=== PATIENT | male | born 1975 | race African-American/Black ===

== ENCOUNTER 2020-08-10 10:32 | Inpatient (IN) | payer SELFPAY ==
[2020-08-10 11:52] LABS: Absolute Lymphocytes (CBC) 1.3 K/uL (0.7-4.9); Basophils % 0.6 % (0-1.3); Hematocrit 51.2 % (39.6-49.0); Lymphocytes % 12.8 % (15.3-44.8); MPV 12.2 fL (7.6-11.3); RBC Red Blood Cell Count 5.81 M/uL (4.33-5.43)
[2020-08-10] MEDS ORDERED: NA CHLORIDE 0.9% 1,000 ML ONE ×2 (12:08→13:08)
[2020-08-10 12:13] LABS: Albumin 4.2 g/dL (3.4-5.0); Bilirubin Direct 0.1 mg/dL (0-0.2); Bilirubin Total 0.8 mg/dL (0.2-1.0); Protein, Total 9.1 g/dL (6.4-8.2)
[2020-08-10 12:14] LABS: Potassium 4.9 mmol/L (3.5-5.1)
[2020-08-10 12:21] LABS: Barbiturates NEGATIVE (NEGATIVE); Benzodiazepines NEGATIVE (NEGATIVE); Cocaine NEGATIVE (NEGATIVE); METHAMPHETAM NEGATIVE (NEGATIVE); Methadone NEGATIVE (NEGATIVE); Opiates NEGATIVE (NEGATIVE); Phencyclidine NEGATIVE (NEGATIVE); THC Cannibis NEGATIVE (NEGATIVE)
[2020-08-10 12:27] LABS: Urine Blood NEGATIVE (NEG); Urine Glucose 2+ (NEG); Urine Protein 1+ (NEG); Urine Specific Gravity 1.025 (1.005-1.030)
--- NOTE | 2020-08-10 12:42 | ER ---
Nurse's Notes [facility] Name: Larry Gruber Age: 44 yrs Sex: Male : 1975 Arrival Date: 08/10/2020 Time: 10:33 Bed 16 Private MD: Diagnosis: Diabetes mellitus due to underlying condition with ketoacidosis;Acute kidney failure Presentation: 08/10 10:39 Onset of symptoms was June 2020. aa5 10:39 Chief complaint: Spouse and/or significant other states: "he's been in bed since aa5 thanksgiving just with no energy, doesn't want to eat or drink and he's lost some weight". Pt denies any pain. Pt only willing to answer some questions during triage, does not want to speak to ER staff. Pt denies cough, denies fever. Coronavirus screen: Client denies travel out of the [place] in the last 14 days. fatigue. Ebola Screen: Patient negative for fever greater than or equal to 101.5 degrees Fahrenheit, and additional compatible Ebola Virus Disease symptoms. Initial Sepsis Screen: Does the patient meet any 2 criteria? HR > 90 bpm. Does the patient have a suspected source of infection? No. Patient's initial sepsis screen is negative. Risk Assessment: Do you want to hurt yourself or someone else? Patient reports no desire to harm self or others. 10:39 Acuity: OLEG 3 aa5 10:39 Method Of Arrival: Wheelchair aa5 Historical: - Allergies: 10:39 No Known Allergies; ca1 - Home Meds: 10:39 Suboxone sublingual sublingual [Active]; ca1 - PMHx: 10:39 addiction to pain pills; ca1 - PSHx: 10:39 Hernia repair; ca1 - Immunization history:: Adult Immunizations unknown. - Social history:: Smoking status: unknown. Screenin:00 Abuse screen: Denies threats or abuse. Denies injuries from another. Nutritional ca1 screening: No deficits noted. Tuberculosis screening: No symptoms or risk factors identified. Fall Risk IV access (20 points). Assessment: 11:00 General: Appears in no apparent distress. comfortable, Behavior is cooperative, ca1 appropriate for age, flat. Pain: Complains of pain in abdomen Pain currently is 2 out of 10 on a pain scale. Pain began this morning. Neuro: Level of Consciousness is awake, alert, obeys commands, Oriented to person, place, time, situation. Cardiovascular: Heart tones S1 S2 present Capillary refill < 3 seconds Patient's skin is warm and dry. Respiratory: Airway is patent Respiratory effort is even, unlabored, Respiratory pattern is regular, symmetrical, Breath sounds are clear bilaterally. GI: Abdomen is round non-distended, Bowel sounds present X 4 quads. Abd is soft and non tender X 4 quads. Reports anorexia. : No signs and/or symptoms were reported regarding the genitourinary system. EENT: No signs and/or symptoms were reported regarding the EENT system. Derm: Skin is intact, is healthy with good turgor, Skin is pink, warm \\T\\ dry. Musculoskeletal: Circulation, motion, and sensation intact. Capillary refill < 3 seconds. 12:00 Reassessment: Patient appears in no apparent distress at this time. Patient and/or ca1 family updated on plan of care and expected duration. Pain level reassessed. Patient is alert, oriented x 3, equal unlabored respirations, skin warm/dry/pink. 13:00 Reassessment: Patient appears in no apparent distress at this time. Patient and/or zb family updated on plan of care and expected duration. Pain level reassessed. Patient is alert, oriented x 3, equal unlabored respirations, skin warm/dry/pink. family at bedside. 14:00 Reassessment: Patient appears in no apparent distress at this time. Patient and/or zb family updated on plan of care and expected duration. Pain level reassessed. Patient is alert, oriented x 3, equal unlabored respirations, skin warm/dry/pink. warm blanket given. family remains at bedside. insulin drip infusing. 15:00 Reassessment: Patient appears in no apparent distress at this time. Patient and/or zb family updated on plan of care and expected duration. Pain level reassessed. Patient is alert, oriented x 3, equal unlabored respirations, skin warm/dry/pink. pt resting in bed awaiting admission. continuing to monitor blood sugar level per protocol. Insulin remains infusing. 16:00 Reassessment: Patient appears in no apparent distress at this time. Patient and/or zb family updated on plan of care and expected duration. Pain level reassessed. Patient is alert, oriented x 3, equal unlabored respirations, skin warm/dry/pink. pt states he is feeling a lot better. decrease abdominal pain. 17:00 Reassessment: Patient appears in no apparent distress at this time. Patient and/or zb family updated on plan of care and expected duration. Pain level reassessed. Patient is alert, oriented x 3, equal unlabored respirations, skin warm/dry/pink. report given to NICOLÁS German (ICU). pt transported via wheelchair with family. denies n/v at this time. Vital Signs: 10:39 BP 103 / 88; Pulse 125; Resp 16 S; Temp 98.0(O); Pulse Ox 100% on R/A; Pain 0/10; aa5 12:12 BP 106 / 65; Pulse 113; Resp 16 S; Pulse Ox 99% on R/A; jd3 12:40 Weight 95.75 kg (M); jd3 15:17 BP 128 / 84; Pulse 104; Resp 17 S; Pulse Ox 99% on R/A; zb 17:27 BP 118 / 87; Pulse 109; Resp 18 S; Pulse Ox 100% on R/A; zb ED Course: 10:33 Patient arrived in ED. ag5 10:38 Rodrigo Murphy PA is PHCP. cp 10:38 Rodrigo Gonzalez MD is Attending Physician. cp 10:39 Arm band placed on. aa5 10:47 Marion Lee, RN is Primary Nurse. ca1 10:58 Triage completed. ca1 11:00 Patient has correct armband on for positive identification. Bed in low position. Call ca1 light in reach. Side rails up X2. Pulse ox on. NIBP on. Warm blanket given. 11:45 Initial lab(s) drawn, by me, sent to lab. Inserted saline lock: 20 gauge in left ca1 antecubital area, using aseptic technique. Blood collected. 12:14 Report given to NICOLÁS Allen. ca1 12:17 Notified Nurse Practitioner and/or Physician Dock Attendant of a critical lab result(s), CO2 ca1 10, Glucose 428 Notified primary nurse of. 12:39 Satya Mcginnis DO is Hospitalizing Provider. cp 13:30 No provider procedures requiring assistance completed. Inserted saline lock: 20 gauge zb in right antecubital area, using aseptic technique. 18:05 Patient admitted, IV remains in place. zb Administered Medications: 11:58 Drug: NS 0.9% 1000 ml Route: IV; Rate: 1 bolus; Site: right antecubital; ca1 12:12 Follow up: Response: No adverse reaction; IV Status: Completed infusion; IV Intake: zb 1000ml 13:42 Drug: NS 0.9% 1000 ml Route: IV; Rate: 1 bolus; Site: left antecubital; zb 13:42 Drug: TORadol - Ketorolac 15 mg Route: IVP; Site: left antecubital; zb 13:48 Drug: Insulin Drip - (Insulin Regular Human 100 units, NS 0.9% 100 ml) {Co-Signature: chelsey soriano (Thiago Garcia RN).} Route: IV; Rate: 5 units/hr; Site: right antecubital; 18:03 Follow up: Response: No adverse reaction; IV Status: Infusion continued upon admission zb Intake: 12:12 IV: 1000ml; Total: 1000ml. zb Outcome: 12:41 Decision to Hospitalize by Provider. cp 18:05 Admitted to ICU accompanied by nurse, family with patient, via wheelchair, room 10, zb with chart, Report called to NICOLÁS German 18:05 Condition: stable 18:05 Instructed on the need for admit, Demonstrated understanding of instructions. 18:07 Patient left the ED. zb Signatures: Margot Etienne RN RN aa5 Rodrigo Murphy PA PA cp Davies, Jonathon, RN RN jd3 Marion Lee RN RN ca1 Pauline Palacio Gwen Tamez RN RN zb Jonathon Davies RN jd3 Corrections: (The following items were deleted from the chart) 11: 10:39 Arm band placed on ca1 aa5 11: 10:39 Chief complaint: Spouse and/or significant other states: "he's been in bed since aa5 thanksgiving just with no energy, doesn't want to eat or drink and he's lost some weight". Pt denies any pain. Pt only willing to answer some questions during triage, does not want to speak to ER staff. Pt denies cough, denies fever. ca1 11: 10:39 Method Of Arrival: Ambulatory [facility] 11: 10:39 Acuity: OLEG 3 ca1 aa5 11:01 10:39 Coronavirus screen: Client denies travel out of the [place] in the last 14 days. aa5 fatigue, ca1 10:39 Ebola Screen: Patient negative for fever greater than or equal to 101.5 degrees aa5 Fahrenheit, and additional compatible Ebola Virus Disease symptoms ca1 10:39 Initial Sepsis Screen: Does the patient meet any 2 criteria? HR > 90 bpm. Does aa5 the patient have a suspected source of infection? No. Patient's initial sepsis screen is negative. ca1 10:39 Risk Assessment: Do you want to hurt yourself or someone else? Patient reports no aa5 desire to harm self or others. ca1 10:39 Onset of symptoms was July 2020 ca1 aa5 : 10:39 BP 131 / 88; Pulse 125bpm; Resp 16bpm; Spontaneous; Pulse Ox 100% RA; Temp 98.0F aa5 Oral; Pain 0/10; ca1 15:18 15:17 Pulse 104bpm; Resp 17bpm; Spontaneous; Pulse Ox 99% RA; zb zb
--- NOTE | 2020-08-10 12:42 | EDPHYS ---
Physician Documentation [facility] Name: Larry Gruber Age: 44 yrs Sex: Male : 1975 Arrival Date: 08/10/2020 Time: 10:33 Bed 16 Private MD: ED Physician Rodrigo Gonzalez HPI: 08/10 10:55 This 44 yrs old Black Male presents to ER via Wheelchair with complaints of Weakness, cp Decreased Appetite. 10:55 The patient presents to the emergency department with weakness of the entire body, cp generalized weakness. 10:55 Onset: The symptoms/episode began/occurred last month. cp 10:55 Associated signs and symptoms: Pertinent positives: weakness, anorexia, weight loss, cp Pertinent negatives: altered mental status, fever. Patient's baseline: Neuro: alert and fully oriented, Motor: no deficits, Ambulation: walks without assistance, Speech: normal. Historical: - Allergies: 10:39 No Known Allergies; ca1 - Home Meds: 10:39 Suboxone sublingual sublingual [Active]; ca1 - PMHx: 10:39 addiction to pain pills; ca1 - PSHx: 10:39 Hernia repair; ca1 - Immunization history:: Adult Immunizations unknown. - Social history:: Smoking status: unknown. ROS: 11:00 Constitutional: Positive for body aches, fatigue, poor PO intake, weight loss, Negative cp for fever. 11:00 Eyes: Negative for injury, pain, redness, and discharge. cp 11:00 ENT: Negative for ear pain, difficulty swallowing, difficulty handling secretions. 11:00 Cardiovascular: Negative for chest pain. 11:00 Respiratory: Negative for cough, shortness of breath, wheezing. 11:00 Abdomen/GI: Negative for abdominal pain, nausea, vomiting, and diarrhea. 11:00 Neuro: Positive for weakness, Negative for altered mental status, headache. 11:00 All other systems are negative. Exam: 11:00 Head/Face: Normocephalic, atraumatic. cp 11:00 Constitutional: The patient appears in no acute distress, alert, awake, non-diaphoretic, non-toxic, well developed, well nourished. 11:00 Eyes: Periorbital structures: appear normal, Conjunctiva: normal, no exudate, no injection, Sclera: no appreciated abnormality, Lids and lashes: appear normal, bilaterally. 11:00 ENT: External ear(s): are unremarkable, Nose: is normal, Mouth: Lips: dry, Oral mucosa: dry, noted to have obvious thrush, Posterior pharynx: Airway: no evidence of obstruction, patent, erythema, that is moderate. 11:00 Neck: ROM/movement: is normal, is supple, without pain, no range of motions limitations, no meningismus. 11:00 Chest/axilla: Inspection: normal, Palpation: is normal, no crepitus, no tenderness. 11:00 Cardiovascular: Rate: tachycardic, Rhythm: regular, Heart sounds: murmur, not appreciated, Edema: is not appreciated, JVD: is not appreciated. 11:00 Respiratory: the patient does not display signs of respiratory distress, Respirations: normal, no use of accessory muscles, no retractions, labored breathing, is not present, Breath sounds: are clear throughout, no decreased breath sounds, no stridor, no wheezing. 11:00 Abdomen/GI: Inspection: abdomen appears normal, Bowel sounds: active, all quadrants, Palpation: abdomen is soft and non-tender, in all quadrants. 11:00 Skin: cellulitis, is not appreciated. 11:00 Neuro: Orientation: to person, place \T\ time. Mentation: is normal, Cerebellar function: is grossly normal, Motor: moves all fours, strength is normal, Sensation: no obvious gross deficits. Vital Signs: 10:39 BP 103 / 88; Pulse 125; Resp 16 S; Temp 98.0(O); Pulse Ox 100% on R/A; Pain 0/10; aa5 12:12 BP 106 / 65; Pulse 113; Resp 16 S; Pulse Ox 99% on R/A; jd3 12:40 Weight 95.75 kg (M); jd3 15:17 BP 128 / 84; Pulse 104; Resp 17 S; Pulse Ox 99% on R/A; zb 17:27 BP 118 / 87; Pulse 109; Resp 18 S; Pulse Ox 100% on R/A; zb MDM: 10:39 Patient medically screened. cp 12:38 Physician consultation: Satya Mcginnis DO was called at 12:38, was contacted at 12:38, cp regarding admission, to the telemetry unit. patient's condition. 12:40 Data reviewed: vital signs, nurses notes, lab test result(s), and as a result, I will cp admit patient. 12:40 Counseling: I had a detailed discussion with the patient and/or guardian regarding: the cp historical points, exam findings, and any diagnostic results supporting the discharge/admit diagnosis, lab results, the need for further work-up and treatment in the hospital. 08/10 10:54 Order name: Basic Metabolic Panel 08/10 10:54 Order name: CBC with Diff 08/10 10:54 Order name: Hepatic Function 08/10 10:54 Order name: Lipase cp 08/10 10:54 Order name: UDS; Complete Time: 12:25 08/10 10:54 Order name: Basic Metabolic Panel; Complete Time: 12:25 EDMS 08/10 10:54 Order name: CBC with Automated Diff; Complete Time: 12:09 EDMS 08/10 12:09 Interpretation: Normal except: RBC 5.81; HCT 51.2; MPV 12.2; ANDREW% 80.8; LYM% 12.8; NEUT cp A 8.2. 08/10 10:54 Order name: Liver (Hepatic) Function; Complete Time: 12:25 EDMS 08/10 10:54 Order name: Lipase; Complete Time: 12:25 EDMS 08/10 12:13 Order name: Urine Dipstick--Ancillary (enter results); Complete Time: 12:36 em1 08/10 12:57 Order name: COVID-19 08/10 13:12 Order name: Blood Culture Adult (2) 08/10 13:12 Order name: Lactate 08/10 13:12 Order name: Procalcitonin 08/10 10:54 Order name: IV Saline Lock; Complete Time: 11:58 cp 08/10 10:54 Order name: Labs collected and sent; Complete Time: 11:58 08/10 10:54 Order name: Urine Dipstick-Ancillary (obtain specimen); Complete Time: 11:58 08/10 12:38 Order name: IV; Complete Time: 13:43 08/10 13:12 Order name: CT Abd/Pelvis - Without Contrast 08/10 14:29 Order name: CT EDMT 08/10 15:01 Order name: Glucose, Ancillary Testing EDMT 12/13 16:06 Order name: Glucose, Ancillary Testing EDMS 08/10 17:03 Order name: Glucose, Ancillary Testing EDMS 08/10 17:06 Order name: Blood Culture EDMS Administered Medications: 11:58 Drug: NS 0.9% 1000 ml Route: IV; Rate: 1 bolus; Site: right antecubital; ca1 12:12 Follow up: Response: No adverse reaction; IV Status: Completed infusion; IV Intake: zb 1000ml 13:42 Drug: NS 0.9% 1000 ml Route: IV; Rate: 1 bolus; Site: left antecubital; zb 13:42 Drug: TORadol - Ketorolac 15 mg Route: IVP; Site: left antecubital; zb 13:48 Drug: Insulin Drip - (Insulin Regular Human 100 units, NS 0.9% 100 ml) {Co-Signature: chelsey soriano (Thiago Garcia RN).} Route: IV; Rate: 5 units/hr; Site: right antecubital; 18:03 Follow up: Response: No adverse reaction; IV Status: Infusion continued upon admission zb Disposition: 08/11 10:49 Co-signature as Attending Physician, Rodrigo Gonzalez MD I agree with the assessment and [place] plan of care. Disposition: 08/10/20 12:41 Hospitalization ordered by Satya Mcginnis for Inpatient Admission. Preliminary diagnosis are Diabetes mellitus due to underlying condition with ketoacidosis, Acute kidney failure. - Bed requested for Telemetry/MedSurg (Inpatient). - Status is Inpatient Admission. zb - Condition is Fair. - Problem is new. - Symptoms have improved. Signatures: Dispatcher [employer] EDMT Rodrigo Gonzalez MD MD cha Page, Corey, PA PA cp Marion Lee RN RN ca1 Gwen Olivier RN RN chelsey Garcia RN jd3 Corrections: (The following items were deleted from the chart) 08/10 12:41 12:41 Hospitalization Ordered by Satya Mcginnis DO for Inpatient Admission. Preliminary cp diagnosis is Diabetes mellitus due to underlying condition with ketoacidosis. Bed requested for Telemetry/MedSurg (Inpatient). Status is Inpatient Admission. Condition is Fair. Problem is new. Symptoms have improved. cp 18:07 12:41 08/10/2020 12:41 Hospitalization Ordered by Satya Prezas DO for Inpatient zb Admission. Preliminary diagnosis is Diabetes mellitus due to underlying condition with ketoacidosis; Acute kidney failure. Bed requested for Telemetry/MedSurg (Inpatient). Status is Inpatient Admission. Condition is Fair. Problem is new. Symptoms have improved. cp
[2020-08-10] MEDS ORDERED: INSULIN -REGULAR HUMAN 100 UNIT in NA CHLORIDE 0.9% 100 ML IV SCH (13:00)
[2020-08-10] MEDS ORDERED: KETOROLAC 30 MG/ML INJ ONE (13:08)
--- NOTE | 2020-08-10 13:27 | P.HP ---
Certification for Inpatient Patient admitted to: Inpatient With expected LOS: >2 Midnights Patient will require the following post-hospital care: None Practitioner: I am a practitioner with admitting privileges, knowledge of patient current condition, hospital course, and medical plan of care. Services: Services provided to patient in accordance with Admission requirements found in Title 42 Section 412.3 of the Code of Federal Regulations Patient History Date of Service: 08/10/20 Primary Care Provider: Dr. Graham; Pain management-[place] Reason for admission: Fatigue, body aches History of Present Illness: 44-year-old male with history of chronic pain on Suboxone. Patient presented with increased fatigue, body aches over the past 3 weeks. Symptoms have been getting worse. He has not been his active self. Patient reports cold sores to his mouth. Reports some mild nausea. Poor intake noted. He reports abdominal pain as well. Pain is diffuse. Not very specific. Patient denies any diarrhea, shortness of breath, chest pain. He came to the ER for further evaluation. In the ER patient evaluated. Patient had blood pressure 103/88. Patient tachycardic with a rate of 125. Patient afebrile. Respirations 16. Room-air saturations 100%. On lab white count 10.2, hemoglobin 16. Platelet count 240. Sodium 133, potassium 4.9. Chloride 98, bicarb 10. BN of 27, creatinine 1.83 with a GFR 47. Glucose 428. AST normal at 26, ALT 41. Lipase normal at 305. Urine drug screen negative. Urinalysis negative of the then positive for ketones. CT abdomen pending. Chest x-ray pending. Patient found to have DKA. Fluid bolus and insulin drip to be started. Patient admitted for further evaluation and treatment. When I saw the patient ER, family was at bedside. Patient reports seen by pain management in [place]. He takes suboxone. Patient is concerned that he has some type of cancer. Family history of diabetes. Allergies No Known Allergies Allergy (Unverified 10/30/17 18:01) Home medications list reviewed: Yes - Past Medical/Surgical History Diabetic: No -: Chronic pain -: Tobacco abuse -: Right inguinal hernia repair Psychosocial/ Personal History: Patient is . He is not working at this time. - Family History Mother -: Hypertension, Diabetes - Social History Smoking Status: Light Tobacco smoker (1-9 cigarettes/day) (Patient dips tobacco) Alcohol use: No CD- Drugs: No Caffeine use: Yes Place of Residence: Home Review of Systems General: Weakness, Malaise, As per HPI Eyes: Unremarkable ENT: Mouth Pain, As per HPI Respiratory: Unremarkable Cardiovascular: Light Headedness, As per HPI Gastrointestinal: Nausea, Abdominal Pain, As per HPI Genitourinary: Unremarkable Musculoskeletal: As per HPI Integumentary: As per HPI Neurological: Weakness, As per HPI Lymphatics: Unremarkable Physical Examination - Physical Exam General: Alert, Oriented x3, Cooperative, Mild distress HEENT: Atraumatic, Other (Dry mucous membranes. Aphthous ulcers to the mouth. Erythema to the mouth and tongue.) Neck: Supple Respiratory: Clear to auscultation bilaterally, Normal air movement Cardiovascular: Abnormal pulses (Mild sinus tachycardia) Gastrointestinal: Normal bowel sounds, Soft and benign, Non-distended, No masses, No rebound, No guarding, Tenderness (Mild pain throughout) Musculoskeletal: No erythema, No warmth, Tenderness (Pain throughout) Integumentary: Other (Dry skin noted) Neurological: Normal speech, Normal strength at 5/5 x4 extr, Normal tone, Normal affect Lymphatics: No axilla or inguinal lymphadenopathy - Studies Laboratory Data (last 24 hrs) 08/10/20 11:45: WBC 10.2, Hgb 16.6, Hct 51.2 H, Plt Count 240 08/10/20 11:45: Sodium 133 L, Potassium 4.9, BUN 27 H, Creatinine 1.83 H, Glucose 428 H*, Total Bilirubin 0.8, AST 26, ALT 41, Alkaline Phosphatase 90, Lipase 305 Assessment and Plan - Plan Impression: Nausea, abdominal pain, fatigue secondary to DKA with new diagnosis of diabetes mellitus type 2 Acute renal injury likely dehydration Oral candidiasis Chronic pain on suboxone Plan: Patient will be admitted for further evaluation and treatment. Patient to received IV fluid bolus x2 in the ER. Insulin drip to be started. 5 units initiated. Continue DKA protocol. Will continue with aggressive IV fluid hydration with electrolyte replacement. Blood culture, sputum culture obtained. Will check chest x-ray and CT abdomen and pelvis to further evaluate. COVID test to be performed. Anticipate recovery from DKA in the next 24-48 hr. Will check A1c, tsh, fasting lipid panel, and lab again tomorrow. Will provide IV Protonix. Will provide IV Diflucan for oral candidiasis. Will need to monitor for infectious cause. Will obtain Tylenol level, lactic acid and pro calcitonin. If elevated will start Rocephin empirically. Will provide DVT prophylaxis-Lovenox. Will provide IV pain medication as needed. Will also start IV folic acid and thiamine. Will continue to monitor the patient closely. Patient would need to be educated on diabetes. Patient likely requires insulin at discharge. At this time continue to follow DKA protocol.. I will turn the service over to the hospitalist team tomorrow. I will go plan of care with him. Discharge Plan: Home Plan to discharge in: 72 Hours - Advance Directives Does patient have a Living Will: No Does patient have a Durable POA for Healthcare: No - Code Status/Comfort Care Code Status Assessed: Yes (Patient full code) Time Spent Managing Pts Care (In Minutes): 55
--- NOTE | 2020-08-10 14:29 | RAD REPORT ---
EXAM DESCRIPTION: CT - Abdomen Pelvis Wo Contrast - 08/10/2020 2:10 pm CLINICAL HISTORY: kidney failure COMPARISON: No comparisons TECHNIQUE: Axial [address] imaging of the abdomen and pelvis was performed without IV contrast. No IV contrast was given because of allergy, abnormal renal function, patient refusal or physician re quest. No oral contrast administered. All CT scans are performed using dose optimization technique as appropriate and may include automated exposure control or mA/KV adjustment according to patient size. FINDINGS: No suspicious findings in the lung bases. Liver shows diffuse fatty infiltration pattern with no focal liver lesion. No capsule nodularity. Spl een and pancreas show no suspicious findings. Gallbladder and biliary tree are also without suspiciou s finding. No hydronephrosis or suspicious renal mass. A 17 millimeter exophytic mass anterior mid right kidney is present. A 17 millimeter exophytic lower pole left renal mass is present. Both show cyst attenuati on values. No significant adrenal finding. Isodense renal masses and pyelonephritis cannot be exclude d in the absence of IV contrast. The urinary bladder is without significant finding. No dilated bowel loops or bowel wall thickening. No appendicitis. No active GI process seen. No free air, free fluid or inflammatory stranding. No hernia, mass or bulky lymphadenopathy. No acute bone findings seen. Patient has advanced for age degenerative change at the L5-S1 disc space where there is disc space narrowing, degenerative gas in the disc space, disc bulge and endplate spu rring changes. Moderate bilateral foraminal stenosis is present. IMPRESSION: Non-contrast enhanced CT abdomen and pelvis imaging show no acute or emergent finding. Diffuse fatty infiltration the liver. Advanced for age degenerative change at the L5-S1 disc level as detailed. Full assessment is limited is the absence of IV contrast.
[2020-08-10] MEDS ORDERED: SODIUM CHLORIDE 0.9% 10ML INJ IV PRN (16:58)
[2020-08-10] MEDS ORDERED: ONDANSETRON 4 MG/2 ML VIAL IV PRN (16:58)
[2020-08-10] MEDS ORDERED: NA CHLORIDE 0.9% 1,000 ML IV ONE (16:58)
[2020-08-10] MEDS ORDERED: MORPHINE 2 MG/ML SYR IV PRN (16:58)
[2020-08-10] MEDS: D5 0.45 NS 1,000 ML IV SCH ×2 (16:58→21:58)
[2020-08-10] MEDS ORDERED: FLUCONAZOLE 100mg IVPB 100 MG/50 ML BAG IV SCH (17:00)
[2020-08-10] MEDS: NACHLORIDE 0.45% 1,000 ML IV SCH ×3 (17:35→21:26)
[2020-08-10] MEDS ORDERED: NACHLORIDE 0.45% 1,000 ML IV ONE ×2 (17:49→21:28)
[2020-08-10 18:16] VITALS: BMI 30.2
[2020-08-10 18:30] LABS: BUN Blood Urea Nitrogen 24 mg/dL (7-18); Glucose Level 264 mg/dL (74-106); Potassium 3.9 mmol/L (3.5-5.1); Sodium Level 142 mmol/L (136-145)
[2020-08-10 18:32] LABS: Bicarbonate 13 mmol/L (21-32)
[2020-08-10 21:22] LABS: Potassium 4.1 mmol/L (3.5-5.1)
[2020-08-10 21:32] LABS: Urine Appearance TURBID; Urine Blood NEGATIVE (NEG); Urine Color YELLOW; Urine Glucose 3+ (NEG); Urine Protein 1+ (NEG); Urine Specific Gravity >=1.030 (1.005-1.030); Urine Urobilinogen 0.2 mg/dL (0.2-1.0)
[2020-08-10 21:39] LABS: Urine Amorphous Sediment 4+ /HPF (NONE SEEN); Urine Bacteria <20 /HPF (NONE SEEN); Urine Bilirubin NEGATIVE (NEG); Urine Microscopic Reflex ORDER UMIC; Urine RBC <5 /HPF (NONE SEEN)
[2020-08-10] MEDS ORDERED: FLUCONAZOLE 200mg IVPB 200 MG/100 ML BAG IV ONE (21:47)
[2020-08-10] MEDS ORDERED: D5 0.45 NS 1,000 ML IV ONE (22:10)
[2020-08-10 23:32] VITALS: O2SAT 99
[2020-08-10] MEDS: MELATONIN 5 MG TABLET PO PRN (23:50)
[2020-08-10] MEDS ORDERED: MELATONIN 5 MG TABLET PO ONE (23:57)
[2020-08-11 01:28] LABS: Potassium 3.4 mmol/L (3.5-5.1)
[2020-08-11] MEDS ORDERED: KCL 20 MEQ/100 mL IVPB 40 MEQ/200 ML BAG IV ONE (03:33)
[2020-08-11] MEDS: KCL 20 MEQ/100 mL IVPB 20 MEQ/100 ML BAG IV SCH ×2 (03:43→05:08)
[2020-08-11] MEDS: D5 0.45 NS 1,000 ML IV SCH (03:45)
[2020-08-11] MEDS: NACHLORIDE 0.45% 1,000 ML IV SCH (03:57)
[2020-08-11] MEDS ORDERED: D5 0.45 NS 1,000 ML IV ONE (03:59)
[2020-08-11 05:37] LABS: Absolute Lymphocytes (CBC) 1.9 K/uL (0.7-4.9); Basophils % 1.1 % (0-1.3); Hematocrit 39.1 % (39.6-49.0); Lymphocytes % 20.7 % (15.3-44.8); MPV 11.6 fL (7.6-11.3); RBC Red Blood Cell Count 4.58 M/uL (4.33-5.43)
[2020-08-11 06:02] LABS: BUN Blood Urea Nitrogen 18 mg/dL (7-18); Bicarbonate 21 mmol/L (21-32); Glucose Level 207 mg/dL (74-106); HDL Cholesterol 29 mg/dL (40-60); LDL Cholesterol, Calculated 210 (<130); Magnesium 2.8 mg/dL (1.8-2.4); Phosphorus 2.1 mg/dL (2.5-4.9); Potassium 3.6 mmol/L (3.5-5.1); Sodium Level 142 mmol/L (136-145); Thyroid Stimulating Hormone 0.588 uIU/mL (0.360-3.740)
[2020-08-11] MEDS ORDERED: INSULIN -REGULAR HUMAN 50 UNIT/0.5 ML ML SQ SCH (07:30)
[2020-08-11] MEDS: INSULIN GLARGINE 100 UNITS/ML SQ SCH (07:53)
[2020-08-11] MEDS: FOLIC ACID 1 MG in NA CHLORIDE 0.9% 50 ML IV SCH (07:55)
--- NOTE | 2020-08-11 07:57 | RAD REPORT ---
EXAM DESCRIPTION: US - Renal Ultrasound-Complete - 08/10/2020 10:34 pm CLINICAL HISTORY: . Renal mass COMPARISON: August 10, 2020 CT FINDINGS: The right kidney measures cm with a normal echotexture. The mass seen on the CT scan is n ot clearly visualized on this exam. The left kidney measures cm with a normal echotexture. 1.9 centimeter cyst extends off of the left ki dney. Hydronephrosis is not seen. No gross abnormality of bladder IMPRESSION: 1.9 centimeter left renal cyst. The right renal mass is not clearly visualized on this exam. Most likely it is benign. Follow up ultr asound in 6 months recommended
[2020-08-11] MEDS ORDERED: INFLUENZA VACCINE (for 3y+) 0.5 ML DOSE IMVAC ONE (08:00)
[2020-08-11] MEDS ORDERED: POTASSIUM PHOS IN 0.9 % NACL 15 MMOL/250 ML BAG IV ONE (08:00)
[2020-08-11] MEDS ORDERED: INSULIN GLARGINE 100 UNITS/ML SQ ONE ×2 (08:04→20:29)
[2020-08-11] MEDS: ENOXAPARIN 40 MG/0.4 ML SQ SCH ×2 (09:00→09:57)
[2020-08-11] MEDS: PANTOPRAZOLE 40 MG INJ IVP SCH (09:56)
[2020-08-11] MEDS: THIAMINE 200 MG/2 ML INJ IVP SCH (09:56)
[2020-08-11] MEDS ORDERED: THIAMINE 200 MG/2 ML INJ ONE (10:09)
[2020-08-11] MEDS ORDERED: PANTOPRAZOLE 40 MG INJ ONE (10:09)
[2020-08-11] MEDS ORDERED: ENOXAPARIN 40 MG/0.4 ML SQ ONE (10:09)
[2020-08-11] MEDS: INSULIN -REGULAR HUMAN 50 UNIT/0.5 ML ML SQ SCH ×3 (11:35→22:00)
[2020-08-11] MEDS ORDERED: INSULIN -REGULAR HUMAN 50 UNIT/0.5 ML ML ONE ×3 (11:47→22:04)
--- NOTE | 2020-08-11 16:15 | P.PN ---
Subjective Date of Service: 08/11/20 Patient blood sugar is much better. We have educated patient on how to check his insulin and we are educating him on how to give himself insulin. Will do a dietary education as well. Patient is insulin dependent Review of Systems 10-point ROS is otherwise unremarkable Physical Examination - Vital Signs Temperature: 97.8 F Blood Pressure: 127/84 Pulse: 88 Respirations: 13 Pulse Ox (%): 99 - Physical Exam General: Alert, In no apparent distress, Oriented x3 Respiratory: Clear to auscultation bilaterally, Normal air movement Cardiovascular: Regular rate/rhythm, Normal S1 S2, No murmurs Gastrointestinal: Normal bowel sounds, Soft and benign, Non-distended, No tenderness Musculoskeletal: No clubbing, No swelling, No tenderness Neurological: Normal strength at 5/5 x4 extr, Sensation intact, Cranial nerves 3-12 intact - Studies Medications List Reviewed: Yes Assessment & Plan - Problems (Diagnosis) (1) DKA (diabetic ketoacidoses) Current Visit: Yes Status: Acute - Plan 1. IV hydration 2. Insulin long-acting; Lantus 30 units subcu daily 3. Accu-Cheks q.a.c. q.h.s. 4. Recheck labs in the morning 5. Continue with diabetic diet 6. Diabetic education 7. GI and DVT prophylaxis Discharge Plan: Home Plan to discharge in: Greater than 2 days - Advance Directives Does patient have a Living Will: No Does patient have a Durable POA for Healthcare: No - Code Status/Comfort Care Code Status Assessed: Yes Code Status: Full Code Critical Care: No Time Spent Managing PTS Care (In Minutes): 35
[2020-08-11] MEDS ORDERED: ATORVASTATIN 40 MG TAB PO SCH (21:00)
[2020-08-11] MEDS ORDERED: FLUCONAZOLE 100mg IVPB 100 MG/50 ML BAG IV SCH (21:00)
[2020-08-11] MEDS ORDERED: MELATONIN 5 MG TABLET PO PRN (21:31)
[2020-08-11] MEDS: MELATONIN 5 MG TABLET PO PRN (22:07)
[2020-08-12 05:11] LABS: Absolute Lymphocytes (CBC) 2.3 K/uL (0.7-4.9); Hematocrit 39.1 % (39.6-49.0); Lymphocytes % 33.8 % (15.3-44.8); MPV 11.3 fL (7.6-11.3); RBC Red Blood Cell Count 4.62 M/uL (4.33-5.43)
[2020-08-12 05:22] LABS: Magnesium 2.4 mg/dL (1.8-2.4); Phosphorus 2.7 mg/dL (2.5-4.9); Potassium 3.3 mmol/L (3.5-5.1)
[2020-08-12] MEDS: INSULIN -REGULAR HUMAN 50 UNIT/0.5 ML ML SQ SCH (07:30)
[2020-08-12] MEDS: FOLIC ACID 1 MG in NA CHLORIDE 0.9% 50 ML IV SCH (07:44)
[2020-08-12] MEDS: PANTOPRAZOLE 40 MG INJ IVP SCH (07:44)
[2020-08-12] MEDS: THIAMINE 200 MG/2 ML INJ IVP SCH (07:45)
[2020-08-12] MEDS: ENOXAPARIN 40 MG/0.4 ML SQ SCH (07:45)
[2020-08-12] MEDS: INSULIN GLARGINE 100 UNITS/ML SQ SCH (07:45)
[2020-08-12] MEDS ORDERED: INSULIN GLARGINE 100 UNITS/ML SQ ONE (07:51)
[2020-08-12] MEDS ORDERED: PANTOPRAZOLE 40 MG INJ ONE (07:52)
[2020-08-12] MEDS ORDERED: INSULIN -REGULAR HUMAN 50 UNIT/0.5 ML ML ONE (07:52)
[2020-08-12] MEDS ORDERED: THIAMINE 200 MG/2 ML INJ ONE (07:52)
[2020-08-12] MEDS ORDERED: ENOXAPARIN 40 MG/0.4 ML SQ ONE (07:52)
--- NOTE | 2020-08-12 08:27 | P.DS ---
Discharge Date: 08/12/20 Primary Care Provider: Dr. Graham; [facility]-[place] Disposition: ROUTINE DISCHARGE Discharge Condition: GOOD Reason for Admission: Fatigue, body aches - Problems (1) DKA (diabetic ketoacidoses) Status: Acute Brief History of Present Illness: Patient is a 44-year-old gentleman who has been having polydipsia, polyphagia, and polyuria. patient was admitted to the hospital with DKA. Patient was treated with insulin drip IV fluids. Patient has been doing well and Was admitted for treatment of type 1 diabetes. Hospital Course: Patient did well during hospital. Patient is clinically doing well at this time. Patient is stable for discharge with outpatient followup. Patient was educated on how to check his blood sugars and how to give himself insulin. We will go ahead and give patient a prescription for his insulin, but you will need to follow up with PCP in 1-2 weeks for further evaluation. Vital Signs/Physical Exam: Temp Pulse Resp BP Pulse Ox 97.6 F 104 H 14 108/71 98 08/12/20 04:00 08/12/20 04:00 08/12/20 04:00 08/12/20 04:00 08/12/20 04:00 General: Alert, In no apparent distress, Oriented x3 Laboratory Data at Discharge: WBC 6.7 K/uL (4.3-10.9) D 08/12/20 05:01 Hgb 13.2 g/dL (13.6-17.9) L 08/12/20 05:01 Hct 39.1 % (39.6-49.0) L 08/12/20 05:01 Plt Count 156 K/uL (152-406) 08/12/20 05:01 Sodium Cancelled 08/12/20 05:02 Potassium Cancelled 08/12/20 05:02 BUN Cancelled 08/12/20 05:02 Creatinine Cancelled 08/12/20 05:02 Glucose Cancelled 08/12/20 05:02 Phosphorus 2.7 mg/dL (2.5-4.9) 08/12/20 05:01 Magnesium 2.4 mg/dL (1.8-2.4) 08/12/20 05:01 Total Bilirubin 0.8 mg/dL (0.2-1.0) 08/10/20 11:45 AST 26 U/L (15-37) 08/10/20 11:45 ALT 41 U/L (12-78) 08/10/20 11:45 Alkaline Phosphatase 90 U/L (45-117) 08/10/20 11:45 Triglycerides 142 mg/dL (<150) 08/11/20 05:17 Cholesterol 267 mg/dL (<200) H 08/11/20 05:17 HDL Cholesterol 29 mg/dL (40-60) L 08/11/20 05:17 Cholesterol/HDL Ratio 9.21 08/11/20 05:17 Lipase 305 U/L (73-393) 08/10/20 11:45 Home Medications: Buprenorphine HCl/Naloxone HCl [Suboxone 8 mg-2 mg Sl Film] 1 each SL DAILY 08/10/20 Atorvastatin Calcium [Lipitor] 40 mg PO BEDTIME #30 tab 08/12/20 Insulin 70/30 NPH/Reg Human [Novolin 70/30*] 26 unit SQ BREAKFAST #2 vial 08/12/20 Melatonin 10 mg PO BEDTIME PRN PRN #20 tablet 08/12/20 Pantoprazole [Protonix Tab] 40 mg PO DAILY #30 tab 08/12/20 New Medications: Atorvastatin Calcium [Lipitor] 40 mg PO BEDTIME #30 tab Melatonin 10 mg PO BEDTIME PRN PRN #20 tablet PRN Reason: Insomnia Insulin 70/30 NPH/Reg Human [Novolin 70/30*] 26 unit SQ BREAKFAST #2 vial Pantoprazole [Protonix Tab] 40 mg PO DAILY #30 tab Patient Discharge Instructions: OK TO DC IV AND DC to home. FOLLOW-UP WITH PRIMARY CARE PROVIDER IN 1-2 WEEKS. FOLLOW-UP WITH POWER SYSTEM DISPATCHER IN 2-4 WEEKS. RETURN TO THE ER IF symptoms worsen. CALL or TEXT DR. LOZANO AT [phone] IF ANY QUESTIONS REGARDING HOSPITAL STAY. PLEASE CALL THE FLOOR AT [phone] IF ANY MEDICATION OR NURSING QUESTIONS. Diet: ADA Activity: Ad joni Followup: Bello Graham MD [Primary Care Provider] - Time spent managing pt's care (in minutes): 35
[2020-08-15 04:23] LABS: HBsAG Nonreactive (Nonreactive)
[2020-08-19 14:44] VITALS: BP 127/84; TEMP 97.8
== END 2020-08-12 11:30 | disposition home or self-care (01) | DRG 638 ==
LOC: ER 10:32 → ERHOLD 13:17
PROVIDERS: ADMIT Family Medicine; ATTEND Hospitalist
DX: E11.10 Type 2 diabetes mellitus with ketoacidosis without coma (principal); N17.9 Acute kidney failure, unspecified; B37.0 Candidal stomatitis; F17.210 Nicotine dependence, cigarettes, uncomplicated; E86.0 Dehydration; Z88.5 Allergy status to narcotic agent; G89.29 Other chronic pain; Z79.4 Long term (current) use of insulin; Z79.899 Other long term (current) drug therapy; Z20.828 Contact with and (suspected) exposure to other viral communicable diseases
CPT/HCPCS: 36415; 74176; 76770; 80048; 80061; 80074; 80076; 80307; 80329; 81003; 81015; 82010; 82947; 83036; 83605; 83690; 83735; 84100; 84145; 84439; 84443; 85025; 87040; 96365; 96366; 96375; 99285; C9113; J1450; J1650; J1815; J3411; J3480; J7030; J7799; U0003